=== PATIENT | male | born 1975 | race Caucasian/White ===

== ENCOUNTER 2017-04-13 09:47 | Day surgery (SDC) | payer OTHER ==
[2017-04-13] MEDS ORDERED: NEOSTIGMINE 3 MG/3 ML SYRINGE (12:26)
[2017-04-13] MEDS ORDERED: ROCURONIUM 50 MG INJ (12:26)
[2017-04-13] MEDS ORDERED: ONDANSETRON 4 MG INJ (12:26)
[2017-04-13] MEDS ORDERED: DEXAMETHASONE 4 MG/ML 1 ML INJ (12:26)
[2017-04-13] MEDS ORDERED: CEFAZOLIN 1 GM INJ (12:26)
[2017-04-13] MEDS ORDERED: FENTAnyl 50 MCG/ML VIAL ×2 (12:26→15:00)
[2017-04-13] MEDS ORDERED: MIDAZOLAM 1 MG/ML 2 ML INJ (12:26)
[2017-04-13] MEDS ORDERED: PROPOFOL 20 ML (12:26)
[2017-04-13] MEDS ORDERED: SUGAMMADEX SODIUM 200 MG/2 ML VIAL IV ×2 (13:21→15:40)
[2017-04-13] MEDS ORDERED: ROPIVACAINE 0.5 % 30 ML VIAL (13:21)
[2017-04-13] MEDS ORDERED: MEPERIDINE 25 MG INJ IV (14:00)
[2017-04-13] MEDS ORDERED: DIPHENHYDRAMINE 50 MG INJ IV (14:00)
[2017-04-13] MEDS ORDERED: FENTAnyl 50 MCG/ML VIAL IV ×3 (14:00)
[2017-04-13] MEDS ORDERED: LABETALOL HCL 20MG INJ IV (14:00)
[2017-04-13] MEDS ORDERED: TRIMETHOBENZAMIDE 100 MG/ML VIAL IM (14:00)
[2017-04-13] MEDS ORDERED: hydrALAzine 20 MG INJ IV (14:00)
[2017-04-13] MEDS ORDERED: HYDROmorphONE (0.2 MG/ML) 10ML SYG IV ×2 (14:00)
[2017-04-13] MEDS ORDERED: IPRATROPIUM (NEB) 0.5 MG/2.5 ML AMP HHN (14:00)
[2017-04-13] MEDS ORDERED: ALBUTEROL 0.083% (NEB) 2.5 MG/3 ML AMP HHN (14:00)
[2017-04-13] MEDS ORDERED: EPHEDrine SULFATE 50 MG/5 ML SYG IV (14:00)
[2017-04-13] MEDS ORDERED: OXYCODONE/ACETAMINOPHEN (5/325) TAB PO (14:00)
[2017-04-13] MEDS ORDERED: MIDAZOLAM 1 MG/ML 2 ML INJ IV (14:00)
[2017-04-13] MEDS ORDERED: BACITRACIN/POLYMYXIN 28.35 GM OINT TOP (14:15)
[2017-04-13] MEDS ORDERED: EPINEPHrine 0.1 MG/ML SYG (14:16)
[2017-04-13] MEDS: CEFAZOLIN 1 GM/50 ML (PMX) 50 ML IVPB (14:37)
[2017-04-13] MEDS: POLYMYXIN/BACITRACIN 1L IRRIG (15:18)
[2017-04-13] MEDS: BUPIVACAINE 0.25%/EPI (SDV) 30 ML INJ (15:55)
[2017-04-13] MEDS: ONDANSETRON 4 MG INJ IV (16:30)
[2017-04-13] MEDS: HYDROmorphONE (0.2 MG/ML) 10ML SYG IV (16:31)
[2017-04-13] MEDS: OXYCODONE/ACETAMINOPHEN (5/325) TAB PO (17:27)
== END 2017-04-13 17:42 | disposition home or self-care (01) ==
LOC: SDS 09:47
DX: S83.511A Sprain of anterior cruciate ligament of right knee, initial encounter (principal); S83.281A Other tear of lateral meniscus, current injury, right knee, initial encounter; S83.241A Other tear of medial meniscus, current injury, right knee, initial encounter; X58.XXXA Exposure to other specified factors, initial encounter
CPT/HCPCS: 29880